=== PATIENT | female | born 1970 | race African-American/Black ===

== ENCOUNTER 2021-11-01 15:08 | Emergency (ER) | payer MEDICAID ==
[~2021-11-01] VITALS: Ht 167.6 cm; Wt 68.0 kg
[2021-11-01] MEDS ORDERED: SODIUM CHLORIDE 0.9% 1,000 ML IV ONE (18:45)
[2021-11-01 18:57] LABS: CLARITY URINE CLOUDY (CLEAR); COLOR URINE YELLOW (YELLOW); KETONES URINE NEGATIVE (NEGATIVE); LEUKOCYTE ESTERASE URINE 1+ (NEGATIVE); NITRITE URINE NEGATIVE (NEGATIVE); OCCULT BLOOD URINE NEGATIVE (NEGATIVE); PROTEIN URINE TRACE (NEGATIVE); SPECIFIC GRAVITY URINE 1.017 (1.005-1.030)
[2021-11-01 19:04] LABS: HEMATOCRIT. 38.1 % (36.0-48.0); MEAN CORPUSCULAR VOLUME 79.2 fL (81.0-99.0); MEAN PLATELET VOLUME 8.3 fl (7.4-10.4); PLATELET 213 x1000/uL (130-400); RED BLOOD CELL COUNT 4.81 mill/uL (4.2-5.4); RED CELL DISTRIBUTION WIDTH 13.8 % (11.6-14.6)
[2021-11-01 19:05] LABS: CHLORIDE 101 mEq/L (98-107)
[2021-11-01 19:11] LABS: ETHANOL BLOOD < 10 mg/dL
[2021-11-01 19:27] LABS: *BARBITURATES SCREEN URINE NEGATIVE (NEGATIVE); *BENZODIAZEPINES SCREEN URINE NEGATIVE (NEGATIVE); *COCAINE SCREEN URINE NEGATIVE (NEGATIVE); CANNABINOID URINE SCREEN NEGATIVE (NEGATIVE); METHADONE URINE SCREEN NEGATIVE (NEGATIVE); OPIATES URINE SCREEN NEGATIVE (NEGATIVE); PHENCYCLIDINE URINE SCREEN NEGATIVE (NEGATIVE)
[2021-11-01 19:41] LABS: *AMPHETAMINES SCREEN URINE PRESUMTIVE POSITIVE (NEGATIVE)
[2021-11-01 22:35] LABS: PLATELET ESTIMATE NORMAL
[2021-11-01 22:51] VITALS: BP 114/68
== END 2021-11-01 22:52 | disposition home or self-care (01) ==
LOC: ER 15:08
DX: F15.10 Other stimulant abuse, uncomplicated (principal); F16.10 Hallucinogen abuse, uncomplicated; Z00.00 Encounter for general adult medical examination without abnormal findings; M79.18 Myalgia, other site; J45.909 Unspecified asthma, uncomplicated; I50.9 Heart failure, unspecified; F17.290 Nicotine dependence, other tobacco product, uncomplicated
CPT/HCPCS: 36415; 80053; 80305; 80320; 81003; 81025; 82962; 85025; 99283; J7030; G0480

== ENCOUNTER 2021-11-02 02:08 | Inpatient (IN) | payer MEDICAID ==
[~2021-11-02] VITALS: Ht 167.6 cm; Wt 78.0 kg
[2021-11-02] MEDS ORDERED: VANCOMYCIN 1G PREMIX 200 ML IV ONE (05:30)
[2021-11-02] MEDS ORDERED: PIPERACILLIN/TAZ 3.375G PREMIX 50 ML IV ONE (05:30)
[2021-11-02 06:21] LABS: BASOPHILS % 0.1 % (0.0-2.0); HEMATOCRIT. 33.7 % (36.0-48.0); HEMOGLOBIN. 10.9 g/dL (12.0-16.0); MEAN CORPUSCULAR HEMOGLOBIN 24.8 pg (28.0-32.0); MEAN CORPUSCULAR VOLUME 76.7 fL (81.0-99.0); MEAN PLATELET VOLUME 8.3 fl (7.4-10.4); MONOCYTES % 3.7 % (2.0-8.0); NEUTROPHILS % 88.2 % (40.0-76.0); PLATELET 218 x1000/uL (130-400); RED BLOOD CELL COUNT 4.39 mill/uL (4.2-5.4); RED CELL DISTRIBUTION WIDTH 13.8 % (11.6-14.6)
[2021-11-02 06:30] LABS: BG BASE EXCESS -0.8 mmol/L (-2.0-2.0); BG CARBOXYHEMOGLOBIN 0.9 % (0.5-1.5); BG DEOXYHEMOGLOBIN 6.8 % (0.0-5.0); BG FRACTION INSPIRED OXYGEN 21; BG HCO3 ACT 22.9 mmol/L (22.0-26.0); BG METHEMOGLOBIN 0.1 % (0.0-1.5); BG OXYGEN SATURATION 93.1 % (92.0-98.5); BG OXYHEMOGLOBIN 92.2 % (94.0-97.0); BG PCO2 34.3 mmHg (35.0-45.0); BG PH 7.442 (7.350-7.450); BG PO2 64.8 mmHg (75.0-100.0); BG SAMPLE SITE RIGHT RADIAL; BG TOTAL HEMOGLOBIN 11.3 g/dL (12.0-18.0); BG VENT MODE ROOM AIR
[2021-11-02 06:30] LABS: CHLORIDE 99 mEq/L (98-107); INR 1.3
[2021-11-02 08:00] VITALS: BP 125/64
[2021-11-02 11:07] LABS: CLARITY URINE CLOUDY (CLEAR); COLOR URINE YELLOW (YELLOW); KETONES URINE TRACE (NEGATIVE); LEUKOCYTE ESTERASE URINE 2+ (NEGATIVE); NITRITE URINE POSITIVE (NEGATIVE); OCCULT BLOOD URINE NEGATIVE (NEGATIVE); PROTEIN URINE 1+ (NEGATIVE); SPECIFIC GRAVITY URINE 1.026 (1.005-1.030)
[2021-11-02 11:29] LABS: *BARBITURATES SCREEN URINE NEGATIVE (NEGATIVE); *BENZODIAZEPINES SCREEN URINE NEGATIVE (NEGATIVE); *COCAINE SCREEN URINE NEGATIVE (NEGATIVE); CANNABINOID URINE SCREEN NEGATIVE (NEGATIVE); METHADONE URINE SCREEN NEGATIVE (NEGATIVE); OPIATES URINE SCREEN NEGATIVE (NEGATIVE); PHENCYCLIDINE URINE SCREEN NEGATIVE (NEGATIVE)
[2021-11-02] MEDS ORDERED: MAGNESIUM/ALUMINUM HYDROXIDE/SIMETHICONE 30ML UDC PO PRN ×2 (11:30→19:15)
[2021-11-02] MEDS ORDERED: ACETAMINOPHEN 325MG TABLET PO PRN ×4 (11:30→19:15)
[2021-11-02] MEDS ORDERED: DIPHENHYDRAMINE 50MG/ML VIAL IV PRN ×2 (11:30→19:15)
[2021-11-02] MEDS ORDERED: ONDANSETRON HCL 4MG/2ML INJ IV PRN ×2 (11:30→19:15)
[2021-11-02] MEDS ORDERED: GUAIFENESIN 200MG/10ML SUGAR FREE UDC PO PRN (11:30)
[2021-11-02] MEDS ORDERED: CLONIDINE 0.1MG TABLET PO PRN ×2 (11:30→19:15)
[2021-11-02] MEDS ORDERED: IPRATROPIUM/ALBUTEROL 0.5-3(2.5)MG/3ML NEB HHN PRN ×2 (11:30→19:15)
[2021-11-02] MEDS ORDERED: ZOLPIDEM TARTRATE 5MG TABLET PO PRN ×2 (11:30→19:15)
[2021-11-02 11:34] LABS: *AMPHETAMINES SCREEN URINE PRESUMTIVE POSITIVE (NEGATIVE)
[2021-11-02] MEDS: LEVOFLOXACIN 500MG PREMIX 100 ML IV SCH (12:25)
[2021-11-02] MEDS: ENOXAPARIN 40MG/0.4ML SYR SUBCUT SCH (12:25)
[2021-11-02 19:00] VITALS: BP 125/64
[2021-11-02] MEDS ORDERED: DEXTROSE 50% WATER 50ML SYRINGE IV PRN (19:15)
[2021-11-02] MEDS ORDERED: PROMETHAZINE/DEXTROMETHORPHAN 6.25-15MG/5ML BOTTLE 120ML PO PRN (19:15)
[2021-11-02] MEDS ORDERED: INSULIN LISPRO 100 UNITS/ML SUBCUT SCH (21:00)
[2021-11-02] MEDS ORDERED: BLOOD SUGAR DIAGNOSTIC STRIP TEST SCH (21:00)
[2021-11-02] MEDS: GUAIFENESIN 600MG ER TABLET PO SCH (21:32)
[2021-11-02] MEDS: SODIUM CHLORIDE 0.9% INJ 3ML FLUSH IVF SCH (22:00)
[2021-11-03] VITALS: BP 117/67
[2021-11-03 04:00] VITALS: BP 118/68
[2021-11-03 06:07] LABS: BASOPHILS % 0.2 % (0.0-2.0); EOSINOPHILS % 0.8 % (0.0-5.0); HEMATOCRIT. 30.5 % (36.0-48.0); HEMOGLOBIN. 10.2 g/dL (12.0-16.0); LYMPHOCYTES % 11.5 % (20.0-50.0); MEAN CORPUSCULAR HEMOGLOBIN 25.6 pg (28.0-32.0); MEAN CORPUSCULAR VOLUME 76.5 fL (81.0-99.0); MEAN PLATELET VOLUME 8.7 fl (7.4-10.4); MONOCYTES % 3.7 % (2.0-8.0); NEUTROPHILS % 83.8 % (40.0-76.0); PLATELET 180 x1000/uL (130-400); RED BLOOD CELL COUNT 3.98 mill/uL (4.2-5.4); RED CELL DISTRIBUTION WIDTH 13.8 % (11.6-14.6)
[2021-11-03 06:22] LABS: CHLORIDE 103 mEq/L (98-107)
[2021-11-03 06:31] LABS: PHOSPHORUS 1.7 mg/dL (2.5-4.9)
[2021-11-03] MEDS: SODIUM CHLORIDE 0.9% INJ 3ML FLUSH IVF SCH ×3 (06:57→21:24)
[2021-11-03 08:00] VITALS: BP 143/75
[2021-11-03] MEDS ORDERED: POTASSIUM CHLORIDE 20MEQ TABLET SR PO SCH (10:00)
[2021-11-03] MEDS: GUAIFENESIN 600MG ER TABLET PO SCH ×2 (10:02→21:22)
[2021-11-03] MEDS ORDERED: MAGNESIUM 2 G PREMIX 50 ML IV SCH (11:00)
[2021-11-03] MEDS ORDERED: POTASSIUM PHOS,M-BASIC-D-BASIC 30 MMOL in SODIUM CHLORIDE 0.9% 500 ML IV SCH (11:00)
[2021-11-03 12:00] VITALS: BP 121/72
[2021-11-03] MEDS: ENOXAPARIN 40MG/0.4ML SYR SUBCUT SCH (14:03)
[2021-11-03 16:00] VITALS: BP 122/75
[2021-11-03] MEDS: LEVOFLOXACIN 500MG PREMIX 100 ML IV SCH (19:16)
[2021-11-03 20:00] VITALS: BP 138/79
[2021-11-04] VITALS: BP 142/69
[2021-11-04 00:07] LABS: HCG SCREEN NEGATIVE
[2021-11-04 04:00] VITALS: BP 122/51
[2021-11-04] MEDS: SODIUM CHLORIDE 0.9% INJ 3ML FLUSH IVF SCH ×3 (06:08→20:57)
[2021-11-04 07:14] LABS: BASOPHILS % 0.1 % (0.0-2.0); EOSINOPHILS % 3.4 % (0.0-5.0); HEMATOCRIT. 29.8 % (36.0-48.0); HEMOGLOBIN. 9.7 g/dL (12.0-16.0); LYMPHOCYTES % 17.1 % (20.0-50.0); MEAN CORPUSCULAR VOLUME 76.8 fL (81.0-99.0); MEAN PLATELET VOLUME 8.6 fl (7.4-10.4); MONOCYTES % 4.3 % (2.0-8.0); NEUTROPHILS % 75.1 % (40.0-76.0); PLATELET 193 x1000/uL (130-400); RED BLOOD CELL COUNT 3.88 mill/uL (4.2-5.4); RED CELL DISTRIBUTION WIDTH 13.8 % (11.6-14.6)
[2021-11-04 07:25] LABS: CHLORIDE 106 mEq/L (98-107)
[2021-11-04 07:38] LABS: PHOSPHORUS 2.6 mg/dL (2.5-4.9)
[2021-11-04 07:52] VITALS: BP 132/66
[2021-11-04] MEDS: GUAIFENESIN 600MG ER TABLET PO SCH ×2 (08:20→20:57)
[2021-11-04] MEDS: ENOXAPARIN 40MG/0.4ML SYR SUBCUT SCH (13:14)
[2021-11-04] MEDS: LEVOFLOXACIN 500MG PREMIX 100 ML IV SCH (15:34)
[2021-11-04 16:09] VITALS: BP 170/87
[2021-11-04 20:00] VITALS: BP 143/87
[2021-11-05] VITALS: BP 145/80
[2021-11-05 03:43] VITALS: BP 144/91
[2021-11-05] MEDS: SODIUM CHLORIDE 0.9% INJ 3ML FLUSH IVF SCH ×2 (05:28→13:38)
[2021-11-05 08:00] VITALS: BP 135/78
[2021-11-05] MEDS: GUAIFENESIN 600MG ER TABLET PO SCH (08:51)
[2021-11-05 12:00] VITALS: BP 139/85
[2021-11-05] MEDS: ENOXAPARIN 40MG/0.4ML SYR SUBCUT SCH (13:00)
[2021-11-05 14:53] VITALS: BP 139/85
[2021-11-05] MEDS: LEVOFLOXACIN 500MG PREMIX 100 ML IV SCH (15:00)
[2021-11-05 16:00] VITALS: BP 141/81
== END 2021-11-05 18:50 | disposition home or self-care (01) | DRG 720 ==
LOC: ER 02:08 → EDBEDREQSVC 05:50 → 8WST 06:08 → EDBEDREQTM 06:11 → EDBEDREQ 06:11 → ENRESERV 17:58 → ER 18:22
PROVIDERS: ADMIT Internal Medicine; ATTEND Internal Medicine
DX: A41.9 Sepsis, unspecified organism (principal); E87.2 Acidosis; J18.9 Pneumonia, unspecified organism; E83.39 Other disorders of phosphorus metabolism; I50.9 Heart failure, unspecified; E11.9 Type 2 diabetes mellitus without complications; D53.9 Nutritional anemia, unspecified; R65.20 Severe sepsis without septic shock; Z20.822 Contact with and (suspected) exposure to COVID-19; E87.6 Hypokalemia; E83.42 Hypomagnesemia; J45.909 Unspecified asthma, uncomplicated; F15.10 Other stimulant abuse, uncomplicated; Z59.00 Homelessness unspecified; Z87.01 Personal history of pneumonia (recurrent)
CPT/HCPCS: 36415; 36600; 71045; 71250; 80048; 80053; 80305; 80320; 81003; 82375; 82805; 82962; 83036; 83605; 83735; 84100; 84145; 84703; 85025; 87070; 87426; 93005; 99291; C9803; J1650; J1956; J2543; J3370; J3475; J3490; J7040; G0480